=== PATIENT | male | born 2005 | race Caucasian/White ===

== ENCOUNTER 2024-09-13 13:58 | Emergency (ER) | payer SELFPAY ==
[~2024-09-13] VITALS: Ht 180.3 cm; Wt 96.6 kg
[2024-09-13] MEDS ORDERED: AMOX1TAB16 PO (14:10)
--- NOTE | 2024-09-13 14:12 | ERN ---
General Chief Complaint: Sore Throat Stated Complaint: SORE THROAT Time Seen by MD: 14:00 Time Seen by Midlevel: 14:00 Source: patient History of Present Illness Initial Comments 18-year-old male with no significant past medical history presenting to the emergency department for a "general checkup". He reports pain to the back of his throat that started yesterday. Denies any fever, chills, or any other symptoms at this time. He reports taking a tea but has not taken any Tylenol or Motrin. Denies sick contacts ROS Dictation CONSTITUTIONAL: Negative except for HPI HEAD/FACE: Negative except for HPI EENT: Negative except for HPI RESPIRATORY: Negative except for HPI GASTROINTESTINAL/ABDOMINAL: Negative except for HPI GENITOURINARY: Negative except for HPI MUSCULOSKELETAL: Negative except for HPI INTEGUMENTARY: Negative except for HPI NEUROLOGICAL/PSYCH: Negative except for HPI HEMATOLOGIC/LYMPHATIC: Negative except for HPI All Systems Negative, Except as noted above. 13 point review of systems assessed and all negative except for above. Physical Exam Physical Exam Dictation Vital Signs reviewed General Appearance: Alert, oriented x 3, no acute distress, well developed, n ourished. Head and Face: non-traumatic. Eyes: PERRL, pink conjunctivas, eyelid no trauma, anterior chamber with arcus senilis. Ears: Pinnas intact and no signs of trauma or erythema ear canals clear and no discharge TM no erythema Nose: No discharge, no bleeding. Oropharynx: Mouth normal, tongue pink, pharynx clear, erythema to the posterior oropharynx, tonsils no exudates, no abscesses noted, mucous membrane moist Neck: Supple, non-tender, no thyromegaly, no masses, no JVD, no bruits Breast:Deferred Chest:No tenderness, no crepitus, no paradoxical movement, no retractions Lungs:Clear, well-ventilated, symmetric, no rales, no wheezing, no rhonchi, no stridor, good breath sounds bilaterally Heart: Regular rate, regular rhythm, no murmur, no gallops Vascular: no peripheral edema, Abdomen: Soft, positive bowel sounds, nondistended, no guarding, nontender, no rebound, no masses no hepatomegaly, no splenomegaly, no Morin's sign, no hernias. Rectal: Deferred Genital: Deferred Neurological: Normal speech, motor function intact, sensory function intact Musculoskeletal: Neck nontender, full range of motion, back nontender, full range of motion, Extremities: nontender, full range of motion Skin: Color pink, dry, no turgor, no rash, no lacerations, no abrasions, no contusions. Lymphatic: Deferred MDM MDM: Differential diagnosis: Viral pharyngitis, strep pharyngitis, upper respiratory infection There are no social concerns with this patient. Prescription drug management Prescriptions will include: Amoxicillin Medical management and examination interpretation discussions were had by me with other qualified healthcare professionals as indicated for the patient's care. DX & DISP Disposition: Discharge Departure Impression: Primary Impression: Pharyngitis Additional Impression: Dental caries Condition: Stable Scripts Amoxicillin/Potassium Clav (Amox Tr-K Clv 875-125 mg Tab) 875 Mg-125 Mg Tablet 1 EACH PO BID for 5 Days, #10 TAB 0 Refills Prov: MARINA MUNROE 09/13/24 Additional Instructions: I have given you a prescription for amoxicillin which should help prevent a dental abscess and should improve your sore throat over the next couple of days. You may take [id number] Tylenol and Motrin as needed for pain. You need to follow up with your primary care doctor and dentist outpatient. No need for emergent intervention from the emergency department at this time. Time of Disposition: 14:09 I have reviewed the case, and I agree with, Diagnosis and Plan I performed the substantive portion of the visit. I have reviewed and perso eulalia made and approve the management plan that is documented in the note by myself or the MOLINA. I acknowledge for responsibility for the patient's management plan. MARINA MUNROE Sep 13, 2024 14:11
[2024-09-13 14:51] VITALS: BP 133/73; PULSE 58; RESP 15; TEMP 95.7; O2SAT 100
== END 2024-09-13 15:00 | disposition home or self-care (01) ==
LOC: EDH 13:58
DX: J02.9 Acute pharyngitis, unspecified (principal); K02.9 Dental caries, unspecified
CPT/HCPCS: 99283